=== PATIENT | male | born 1955 | race Caucasian/White ===

== ENCOUNTER → 2024-12-14 08:45 | Outpatient (REF) | payer MEDICARE, SELFPAY | LOC: DHSLP 08:45 | PROVIDERS: ATTENDING PHYSICIAN Internal Medicine; FAMILY PHYSICIAN Student in an Organized Health Care Education/Training Program | DX: G47.33 Obstructive sleep apnea (adult) (pediatric) (principal) | CPT/HCPCS: 95800 ==

== ENCOUNTER 2025-02-12 13:01 | Inpatient (IN) | payer MEDICARE, OTHER, SELFPAY ==
[2025-02-12] VITALS (9 sets, daily range): BP systolic 129–150; BP diastolic 65–85; BMI 28.7; BMI 27.6
[2025-02-12] MEDS: ANCEF 10 IV ×2 (11:25→18:59)
[2025-02-12 11:36] LABS: Hematocrit 34.3 % (39.0-52.0); Hemoglobin 11.0 g/dL (13.0-18.0); Mean Corp Hgb Conc. 32.1 g/dL (33.0-37.0); Mean Corpuscular Volume 92.2 fL (80.0-94.0); Nucleated Red Blood Cells % 0 % (-); Platelet Count 182 10^3/uL (130-400); Red Cell Dist. Width 12.5 % (11.5-14.5)
[2025-02-12 11:56] LABS: ALT (SGPT) 21 U/L (0-50); AST (SGOT) 24 U/L (17-59); Albumin 3.9 g/dl (3.5-5.0); Alkaline Phosphatase 52 U/L (38-126); Blood Urea Nitrogen 30 mg/dl (9-20); Calcium 8.9 mg/dl (8.4-10.2); Carbon Dioxide 26 mmol/L (22-30); Chloride 105 mmol/L (98-107); Estimated Creatinine Clearance 86 ml/min; Glucose 89 mg/dl (70-99); Potassium 4.3 mmol/L (3.5-5.1); Sodium 137 mmol/L (135-145); Total Protein 6.6 g/dl (6.3-8.2); eGFR > 60.00
--- NOTE | 2025-02-12 12:03 | ED.GENMED ---
History of Present Illness
<Jf Schulz PA-C - Last Filed: 02/12/25 14:10>
General
Chief Complaint: Swelling
Time Seen by Provider: 02/12/25 10:26
History of Present Illness
History of Present Illness:
69-year-old male presents to the emergency department for evaluation of right foot redness and swelling extending up to the right leg. Patient notes that several weeks ago he had a callus debridement performed by his medicine tech and was recommended
to wear insoles with his leg braces. He feels as though one of the insoles is not fitting properly. Has history of cardiac amyloidosis and resultant severe edema in both legs, due to polyneuropathy associated with this condition he has required
the use of ankle and leg braces for ambulation.
Past History
<Jf Schulz PA-C - Last Filed: 02/12/25 14:10>
Past History
ED Past Medical History: Other (Peripheral neuropathy of unknown etiology)
Social History
Tobacco: Non-smoker
Personal:
Review of Systems
<Jf Schulz PA-C - Last Filed: 02/12/25 14:10>
Review of Systems
Allergies reviewed?: Yes
All Other Systems: ROS reviewed and negative except as documented in HPI and ROS
Phy Exam
<Jf Schulz PA-C - Last Filed: 02/12/25 14:10>
Physical Exam
Physical Exam:
GEN: Well appearing, NAD, WDWN
HEENT: Oral mucosa moist, no scleral icterus
Cardiac: Regular rate
Lung: No respiratory distress, no tachypnea
MSK: Severe edema bilateral lower extremities increased right erythema extending from the proximal MTP joints extending to the mid calf
Skin: Good color, no pallor or jaundice, no rashes
Neuro: AO x3, moves all extremities freely
Psych: Calm, cooperative
Scores
<Jf Schulz PA-C - Last Filed: 02/12/25 14:10>
Heart Failure Risk
Heart Failure Risk Score: Not Applicable
Course
<Jf Schulz PA-C - Last Filed: 02/12/25 14:10>
Orders/Labs/Results
Orders:
Orders
02/12/25 10:53
CeFAZolin 2 GRAM [Ancef] 2 grams in 10 ml IV NOW
02/12/25 11:16
Complete Blood Count/With Diff Urgent
Comprehensive Metabolic Panel Urgent
Blood Culture Q30M
ULICES Source: Blood/Venous
Specimen Description:
02/12/25 11:22
Blood Culture Q30M
ULICES Source: Blood/Venous
Specimen Description:
02/12/25 12:31
Admit/Transfer Patient As Directed
Co-Sign Provider:
Level of Care: Inpatient admission
Assign to:: Medical/Surgical
Physician / Group: yesenia
Diagnosis: right LE cellulitis
Reason for Hospitalization: right le Cellulitis
Expected length of stay greater than two midnights?: Yes
ELOS- Estimated Length of Stay in days: 3
I certify the patient meets the requirements for IP care: Yes
PRN Pain Medication Management As Directed
May give lesser potent ordered pain med per pt: Yes
preference::
Protocol:: Medication orders for pain may be administered in a
manner that supports deferring to patient preference
when the pt is:
- Requesting an ordered lesser potent pain medication.
Least to most potent pain medications are defined
as: acetaminophen < NSAID < tramadol < opioids
(morphine, oxycodone, hydromorphone).
- Requesting a lesser dose of the same medication IF
ORDERED.
- Requesting a less intrusive route of administration
if both routes are prescribed by the provider (PO <
IV).
02/12/25 12:32
Code Status As Directed
Resuscitation Status: Full Code
Abnormal Lab Results
02/12/25
11:16
RBC 3.72 L 10^6/uL
(4.70-6.10)
Hgb 11.0 L g/dL
(13.0-18.0)
Hct 34.3 L %
(39.0-52.0)
MCHC 32.1 L g/dL
(33.0-37.0)
Absolute Lymphs (auto) 1.0 L 10^3/uL
(1.2-3.4)
Absolute Monos (auto) 0.7 H 10^3/uL
(0.1-0.6)
Lymphocytes % 15.7 L %
(20.5-51.1)
Monocytes % 10.4 H %
(1.7-9.3)
BUN 30 H mg/dl
(9-20)
02/12/25 11:16
02/12/25 11:16
Vital Signs
Initial and Last Documented VS:
Initial Vital Signs
Temp Pulse Resp BP Pulse Ox
97.9 F 59 18 148/79 100
02/12/25 10:20 02/12/25 10:20 02/12/25 10:20 02/12/25 10:20 02/12/25 10:20
Last Documented Vital Signs
Temp Pulse Resp BP Pulse Ox
97.9 F 66 17 133/70 96
02/12/25 10:20 02/12/25 13:00 02/12/25 13:00 02/12/25 13:00 02/12/25 13:00
<Katrin Parkinson MD - Last Filed: 02/12/25 13:52>
Orders/Labs/Results
Orders:
Orders
02/12/25 10:53
CeFAZolin 2 GRAM [Ancef] 2 grams in 10 ml IV NOW
02/12/25 11:16
Complete Blood Count/With Diff Urgent
Comprehensive Metabolic Panel Urgent
Blood Culture Q30M
ULICES Source: Blood/Venous
Specimen Description:
02/12/25 11:22
Blood Culture Q30M
ULICES Source: Blood/Venous
Specimen Description:
02/12/25 12:31
Admit/Transfer Patient As Directed
Co-Sign Provider:
Level of Care: Inpatient admission
Assign to:: Medical/Surgical
Physician / Group: yesenia
Diagnosis: right LE cellulitis
Reason for Hospitalization: right le Cellulitis
Expected length of stay greater than two midnights?: Yes
ELOS- Estimated Length of Stay in days: 3
I certify the patient meets the requirements for IP care: Yes
PRN Pain Medication Management As Directed
May give lesser potent ordered pain med per pt: Yes
preference::
Protocol:: Medication orders for pain may be administered in a
manner that supports deferring to patient preference
when the pt is:
- Requesting an ordered lesser potent pain medication.
Least to most potent pain medications are defined
as: acetaminophen < NSAID < tramadol < opioids
(morphine, oxycodone, hydromorphone).
- Requesting a lesser dose of the same medication IF
ORDERED.
- Requesting a less intrusive route of administration
if both routes are prescribed by the provider (PO <
IV).
02/12/25 12:32
Code Status As Directed
Resuscitation Status: Full Code
Abnormal Lab Results
02/12/25
11:16
RBC 3.72 L 10^6/uL
(4.70-6.10)
Hgb 11.0 L g/dL
(13.0-18.0)
Hct 34.3 L %
(39.0-52.0)
MCHC 32.1 L g/dL
(33.0-37.0)
Absolute Lymphs (auto) 1.0 L 10^3/uL
(1.2-3.4)
Absolute Monos (auto) 0.7 H 10^3/uL
(0.1-0.6)
Lymphocytes % 15.7 L %
(20.5-51.1)
Monocytes % 10.4 H %
(1.7-9.3)
BUN 30 H mg/dl
(9-20)
02/12/25 11:16
02/12/25 11:16
Vital Signs
Initial and Last Documented VS:
Initial Vital Signs
Temp Pulse Resp BP Pulse Ox
97.9 F 59 18 148/79 100
02/12/25 10:20 02/12/25 10:20 02/12/25 10:20 02/12/25 10:20 02/12/25 10:20
Last Documented Vital Signs
Temp Pulse Resp BP Pulse Ox
97.9 F 66 17 133/70 96
02/12/25 10:20 02/12/25 13:00 02/12/25 13:00 02/12/25 13:00 02/12/25 13:00
<Jf Schulz PA-C - Last Filed: 02/12/25 14:10>
MDM/Problems Addressed
MDM/Problems Addressed:
Will start IV antibiotics, given his severe edema and compromised muscular status in the lower extremities his lymphatic drainage is thus compromised and we will admit for IV antibiotics to avoid further complications. He is anticoagulated thus no
need for ultrasound at this time
<Jf Schulz PA-C - Last Filed: 02/12/25 14:10>
*Pulse Oximetry
SaO2: 99
Oxygen Mode of Delivery: Room air
Patient hypoxic: no
*Critical Care Note
Total Time (30-74mins, 75-104mins- exclusive of procedures): Not Applicable
ED Attending Note
<Jf Schulz PA-C - Last Filed: 02/12/25 14:10>
-
Portions of this chart may have been created with voice recognition software.� Occasional wrong word or��sound alike� substitutions may have occurred due to the inherent limitations of voice recognition software.
<Katrin Parkinson MD - Last Filed: 02/12/25 13:52>
ED Attending Note
Patient seen and examined by attending physician: Yes
I performed the substantive portion of visit, reviewed & personally made and approve the management plan that is documented in note by myself or EYAL.: Yes
ED Attending Note:
The patient appears well nontoxic. Lungs are clear. Patient has a circumferentially swollen right foot with erythema tracking up top of foot as well as medial aspect of right lower leg.
Discharge Plan
Departure
Patient Disposition: Admit
Date of Disposition: 02/12/25
Time of Disposition: 12:04
Admit to: Med/Surg
Presentation/result/management discussed w/ accepting MD/DO: Hospitalist
Discharge Problem:
Cellulitis of right lower extremity
Interventions
Interventions:
*Risk Screen - Suicide Last Done: 02/12/25 10:20
*General Assessment Last Done: 02/12/25 10:48
*Neglect/Abuse Screening Last Done: 02/12/25 10:48
ED- Cardiac Assessment Last Done: 02/12/25 10:48
ED- Pulmonary Assessment Last Done: 02/12/25 10:48
ED-Skin Assessment Last Done: 02/12/25 10:48
--- NOTE | 2025-02-12 12:05 | HPS.HSE ---
Addendum entered and electronically signed by Tiara Emerson MD 02/12/25 13:49:
This is an addendum to H&P written by Lolly Martinez on 02/12/2025. �Patient seen and examined independently with GUEST SERVICES ASSISTANT.
69-year-old male past medical history of cardiac amyloidosis, pAfib on Eliquis, chrnotropic incompentence s/p pacemaker, peripheral neuropathy, chronic anemia, osteomyelitis of left heel status post surgery, presenting with infection of right leg.
He underwent exfoliation of legs by podiatry a month ago. �Wearing new inserts that were not sitting right with infection of the callus with subsequent reduction of the foot and leg. �No fevers or chills.
Vital signs unremarkable.� On examination there is callous without any wound. Redness of the foot progressing up the leg.�
Labs show stable anemia.
Patient with cellulitis of right lower extremity. �Blood cultures pending. �Cefazolin.
Original Note:
Family Physician
-
Family Physician: Evelin Garza MD
Chief Complaint
-
right foot swelling and redness
History of Present Illness
69 year old with PMH for cardiomyopathy, amyloidosis , polyneuropathy, HTn, osteomyelitis, polyneuropathy,chronotropic incompetence presented to us with right LE redness and swelling. patient had an exfoliation of his plantar aspect of leg a month
ago. he was asked to wear a insert in his shoes. the insert was not sitting right in his shoes, and he developed the callus on the plantar on his right foot.he wears the shoes with brace all the time due to the polyneuropathy. last night he
noticed redness and swelling on his right LE. today he was not able to reach his PCP so he came to the ER. patient denied fever, chills, chest pain, short of breath. Patient denied headache, dizzy or syncope. Patient denied abdominal pain, nausea,
vomiting or diarrhea. Patient denied dysuria hematuria
patient received IV Ancef in the ER. blood culture sent from ER. admitting for further management.
Medical History
Past Medical History
Past Medical History: Reports Other
Additional Past Medical History:
Amyloidosis, polyneuropathy, seizure, sleep apnea, bradycardia chronotropic incompetence, cardiomyopathy
Past Surgical History: Reports Other
Additional Past Surgical History:
Left knee arthroscopy, pacemaker
Social History
Tobacco: Non-smoker
Alcohol: None
Drug: None
Personal:
Living: With Family
Family History
Family History: Not pertinent
Allergies / Home Medications
Allergies reflects when Allergies were last updated in [facility] [place] - 2.
Home Medications with original date entered in [facility] [place] - 2
Allergy/Medication List:
Allergies
Allergy/AdvReac Type Severity Reaction Status Date / Time
No Known Allergies Allergy Verified 02/12/25 10:20
Home Medications
omega-3 fatty acids-fish oil 360 mg-1,200 mg capsule (Fish Oil) 1 ea PO DAILY Supplement 04/24/17
Amyloidosis Specific Multivit 1 tab PO DAILY Supplement 02/12/25
apixaban 5 mg tablet (Eliquis) 5 mg PO BID Blood Clot Prevention/Tx 02/12/25
valsartan 160 mg tablet 160 mg PO BID Blood Pressure 02/12/25
vutrisiran 25 mg/0.5 mL subcutaneous syringe (Amvuttra) 25 mg SC [id number] amyloidosis 02/12/25
Review of Systems
-
Constitutional: Reports No Symptoms
EENT: Reports No Symptoms
Respiratory: Reports No Symptoms
Cardiac: Reports No Symptoms
Abdomen/GI: Reports No Symptoms
: Reports No Symptoms
Musculoskeletal: Reports No Symptoms
Skin: Reports Other (Right lower extremities redness, swelling, callus noted on the plantar aspect)
Neurological: Reports No Symptoms
Endocrine: Reports No Symptoms
Hematologic/Lymphatic: Reports No Symptoms
Psych: Reports No Symptoms
Physical Exam
Vital Signs
Vital Signs
Temp Pulse Resp BP Pulse Ox
97.9 F 60 16 148/79 99
02/12/25 10:20 02/12/25 10:45 02/12/25 10:45 02/12/25 10:20 02/12/25 12:05
Physical Exam
General: Well Developed, Well Nourished and No Apparent Distress
HEENT: NormoCephalic, Moist mucous membranes and Atraumatic
Respiratory: Clear
Cardiac: S1/S2 and Regular Rhythm; No Murmur or Rub
GI: Soft, Non Tender, Non Distended and Normal Bowel Sounds; No Organomegaly
Rectal: Deferred by Provider
Musculoskeletal: No Clubbing, No Cyanosis and No Edema
Skin: Rash and Other (Right lower extremities redness swelling, callus underneath the right great toe)
Neuro: AO x 3 and Nonfocal/grossly intact
Psych: Calm
Laboratory Results
-
02/12/25 11:16
02/12/25 11:16
Laboratory Results
Total Bilirubin 0.7 mg/dl (0.2-1.3) 02/12/25 11:16
AST 24 U/L (17-59) 02/12/25 11:16
ALT 21 U/L (0-50) 02/12/25 11:16
Alkaline Phosphatase 52 U/L (38-126) 02/12/25 11:16
Data Reviewed
-
Lab Data: Labs Reviewed by me
Impression/Plan
-
# Right lower extremity cellulitis
- IV Ancef
- Blood culture sent from ER
- Wound care consulted
- Tylenol as needed for fever or pain
# Cardiomyopathy
# Paroxysmal A-fib
# Chronotropic incompetence
# Essential hypertension
# Status post pacemaker
- Eliquis continued
- Valsartan continued with hold parameter
# History of amyloidosis
- On vutrisiran every 3 months
# History of polyneuropathy
# History of r left lower extremities
# DVT prophylaxis
- Eliquis
# CODE STATUS
- Full code
--- NOTE | 2025-02-12 12:44 | EDCM ---
CM reviewed chart and met with patient at ED bedside
Lives in a multi-level home with Latricia : [address]
Independent and ambulating without any AD , driving
DME bilateral foot braces
PCP Evelin Garza
RX plan yes
pharmacy : [facility] in [place]
no hx of SNF hx of [facility] 8 years ago
outpatient wound care at 8 years ago
DCP is for him to return home once stable
CM to follow up for dcp needs
[2025-02-12] MEDS: DIOVAN 160 MG PO (20:09)
[2025-02-12] MEDS: ELIQUIS 5 MG PO (20:11)
--- NOTE | 2025-02-12 23:41 | PTCARENOTE ---
received pt from ED at 2130. pt ambulated from stretcher to bed. pt A&O x 3. pt offers no current complaints and appears comfortable in bed. call carvajal within reach. plan of care ongoing.
[2025-02-13] MEDS: ANCEF 10 IV ×3 (02:07→17:00)
--- NOTE | 2025-02-13 07:26 | W.PN.HOSP.TC ---
Addendum entered and electronically signed by Jeffrey Reese MD 02/13/25 15:57:
Seen and examined the patient. Agree with the plan set forth by the resident. See changes in my documentation
69-year-old with right foot swelling and redness
Right foot mildly edematous
Small callus with shallow wound in the plantar aspect
Pulses are readily palpable
Neuropathy changes bilateral lower extremity and upper extremity
Cardiovascular system S1 and S2 appreciated
Chest clear to auscultation
# Right lower extremity cellulitis
Started on IV Ancef-continue
Blood culture sent by the ER-follow
Wound care consulted
Patient follows up with podiatry as outpatient
Would do Saul bandages for the foot
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 Continue Specific vitamins (pt to supply)
# Paroxysmal atrial fibrillation-on Eliquis
# Hypertension-on valsartan
# S/p pacemaker placement
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
# History of seizures-not on medicines
# BMI of 27
# DVT prophylaxis-Eliquis
# Full code
Part of this note was created using voice recognition system. Occasional wrong word or��sound alike� substitutions may have inadvertently occurred due to the inherent limitations of voice recognition software. If noted kindly bring it to my
attention for correction.
Original Note:
Today's Communication/Plan
-
Continue IV antibiotics
Compression therapy
X-ray
Assessment / Plan
Assessment / Plan
69 year old with PMH for cardiomyopathy, paroxysmal A-fib on Eliquis, amyloidosis , polyneuropathy, HTN, osteomyelitis, polyneuropathy, chronotropic incompetence presented to us with right LE redness and swelling. patient had an exfoliation of his
plantar aspect of leg a month ago. On evening of 02/11 noticed redness and swelling on his right LE. Due to impaired lympahtic drainage in the setting of amyloidosis, he was admitted for IV antibiotics for RLE cellulitis.
# Right lower extremity cellulitis
#right lower extremity wound
- IV Ancef
- followup Blood cultures
- Wound care following
- Compression therapy, knee-high
- X-ray, rule out osteomyelitis
- Tylenol as needed for fever or pain
# Paroxysmal A-fib
-eliquis
# Essential hypertension
- Valsartan continued with hold parameter
# Chronotropic incompetence
# Cardiomyopathy, amyloidosis
Status post pacemaker
# History of amyloidosis
- On vutrisiran every 3 months
# History of polyneuropathy
Due to amyloidosis
DVT prophylaxis
- Eliquis
CODE STATUS
- Full code
Anticipated Discharge: Within 24 hours
Subjective/Interval History
-
Patient was seen at bedside, reports feeling well today. He reports no nausea fevers chills shortness of breath or pain. At baseline he cannot feel feet well due to amyloidosis. Reports that redness around the feet has improved. Reports travel
between here [facility] in the past couple weeks but has not felt any pain or swelling in his calf area. Date of Service: February 13, 2025
Objective Data
-
Labs:
Laboratory Results
02/13/25
06:00
WBC Pending
Hgb Pending
Hct Pending
Plt Count Pending
Sodium Pending
Potassium Pending
Chloride Pending
Carbon Dioxide Pending
BUN Pending
Creatinine Pending
Glucose Pending
Calcium Pending
Vital Signs:
Vital Signs
Temp Pulse Resp BP Pulse Ox
98.5 F 61 19 129/65 98
02/12/25 23:14 02/12/25 23:14 02/12/25 23:14 02/12/25 23:14 02/12/25 23:14
I&O
02/12/25 02/13/25 02/14/25
06:59 06:59 06:59
Intake Total 480 / 480
Balance 480 / 480
Review of Systems
-
History Source: Patient
Constitutional: Reports No Symptoms; Denies Fever or Fatigue
EENT: Reports No Symptoms Reported; Denies Sore Throat or Runny Nose
Respiratory: Reports No Symptoms; Denies Cough, Trouble Breathing or Wheezing
Cardiac: Reports No Symptoms; Denies Chest Pain or Palpitations
Abdomen/GI: Reports No Symptoms; Denies Abdominal Pain, Nausea, Vomiting, Diarrhea or Constipated
Genitourinary: Reports No Symptoms; Denies Dysuria
Musculoskeletal: Reports No Symptoms
Skin: Reports No Symptoms
Neuro: Reports No Symptoms; Denies Dizzy or Headache
Physical Exam
-
General: Well Developed, Well Nourished, No Apparent Distress and Comfortable
HEENT: Normocephalic and Atraumatic
Respiratory: Clear to Auscultation and Non Labored Respirations; Negative Wheezes or Crackles
Cardiac: Regular Rhythm and S1/S2; Negative Murmur
GI: Soft, Nontender, Nondistended and Normal Bowel Sounds
Musculoskeletal: Edema, Right Lower Extrem (3+, right leg greater than left in size) and Edema, Left Lower Extrem (1+)
Skin: Lesions (Callus right erythematous lesion plantar aspect of right foot) and Other (Nonblanchable erythema across right metatarsal progressing to ankle)
Neuro: Awake and Alert
[2025-02-13 07:40] VITALS: BP 150/79
[2025-02-13 07:54] LABS: Hematocrit 33.4 % (39.0-52.0); Hemoglobin 11.5 g/dL (13.0-18.0); Mean Corp Hgb Conc. 34.4 g/dL (33.0-37.0); Mean Corpuscular Volume 88.6 fL (80.0-94.0); Platelet Count 186 10^3/uL (130-400); Red Cell Dist. Width 12.2 % (11.5-14.5)
[2025-02-13 08:22] LABS: Blood Urea Nitrogen 20 mg/dl (9-20); Calcium 8.7 mg/dl (8.4-10.2); Carbon Dioxide 25 mmol/L (22-30); Chloride 107 mmol/L (98-107); Estimated Creatinine Clearance 97 ml/min; Glucose 95 mg/dl (70-99); Potassium 4.2 mmol/L (3.5-5.1); Sodium 136 mmol/L (135-145); eGFR > 60.00
[2025-02-13] MEDS: DIOVAN 160 MG PO ×2 (08:39→20:48)
[2025-02-13] MEDS: ELIQUIS 5 MG PO ×2 (08:40→20:47)
--- NOTE | 2025-02-13 12:39 | CM ---
Reviewed chart and met with pt bedside. IMM given and placed on the chart. Pt states he DOES NOT have any wounds. BC are pending.
Plan: Home no need
[2025-02-13 15:40] VITALS: BP 134/73
[2025-02-13 23:16] VITALS: BP 105/53
[2025-02-14] MEDS: ANCEF 10 IV ×2 (01:55→09:55)
--- NOTE | 2025-02-14 02:24 | DOWNTIME ---
There was a [employer] Client R[employer] Access Downtime on 02/14/2025 from 0100 to 02/14/2025 at 0215. Downtime documentation of patient's care, including medication administrations, has been reconciled in the electronic record per guidelines. Refer to the
patient's paper chart under the miscellaneous tab to see printed paper medication records and downtime forms.
[2025-02-14 07:40] VITALS: BP 147/81
[2025-02-14] MEDS: DIOVAN 160 MG PO (08:09)
[2025-02-14] MEDS: ELIQUIS 5 MG PO (08:09)
[2025-02-14 08:13] LABS: Hematocrit 35.9 % (39.0-52.0); Hemoglobin 11.7 g/dL (13.0-18.0); Mean Corp Hgb Conc. 32.6 g/dL (33.0-37.0); Mean Corpuscular Volume 92.3 fL (80.0-94.0); Platelet Count 210 10^3/uL (130-400); Red Cell Dist. Width 12.4 % (11.5-14.5)
--- NOTE | 2025-02-14 09:31 | W.PN.HOSP.TC ---
Addendum entered and electronically signed by Jeffrey Reese MD 02/14/25 15:41:
Seen and examined the patient. Agree with the plan set forth by the resident. See changes in my documentation
69-year-old with right foot swelling and redness
X-ray of the foot-moderate diffuse soft tissue swelling with subcutaneous edema. No osteomyelitis. Moderate hallux valgus deformity. 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 Small plantar calcaneal enthesophyte
Right foot mildly edematous-better today
Small callus with shallow wound in the plantar aspect
Pulses are readily palpable
Neuropathy changes bilateral lower extremity and upper extremity
Cardiovascular system S1 and S2 appreciated
Chest clear to auscultation
Bilateral foot drop
# Right lower extremity cellulitis
Started on IV Ancef-change to PO for Discharge
Blood culture neg
Patient follows up with podiatry as outpatient, advised to follow up
Would do Saul bandages for the foot, pt aware
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 Continue Specific vitamins (pt to supply)
# Paroxysmal atrial fibrillation-on Eliquis
# Hypertension-on valsartan
# S/p pacemaker placement
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
# History of seizures-not on medicines
# BMI of 27
# DVT prophylaxis-Eliquis
# Full code
OK for Discharge on PO AB
He is aware to follow-up with director workforce management to get a better shoes and also proper shoe inserts. Patient uses splints for his foot drop.
Part of this note was created using voice recognition system. Occasional wrong word or��sound alike� substitutions may have inadvertently occurred due to the inherent limitations of voice recognition software. If noted kindly bring it to my
attention for correction.
Original Note:
Today's Communication/Plan
-
Transition IV antibiotics to p.o.
Patient medically stable for discharge
Assessment / Plan
Assessment / Plan
69 year old with PMH for cardiomyopathy, paroxysmal A-fib on Eliquis, amyloidosis , polyneuropathy, HTN, osteomyelitis, polyneuropathy, chronotropic incompetence presented to us with right LE redness and swelling. patient had an exfoliation of his
plantar aspect of leg a month ago. On evening of 02/11 noticed redness and swelling on his right LE. Due to impaired lymphatic drainage in the setting of amyloidosis, he was admitted for IV antibiotics for RLE cellulitis. Foot x-ray ruled out
acute osteomyelitis. Patient continued to receive IV antibiotics compression therapy and wound care resulting in reduced erythema and swelling of the right lower extremity. Patient medically stable for discharge.
# Right lower extremity cellulitis
#right lower extremity wound
- IV Ancef transition to Keflex for 5 more days
- Blood cultures no growth to date
- Wound care following
- Compression therapy, knee-high
- Foot x-ray negative for osteomyelitis
- Tylenol as needed for fever or pain
# Paroxysmal A-fib
-eliquis
# Essential hypertension
- Valsartan continued with hold parameter
# History of amyloidosis
# Chronotropic incompetence
# Cardiomyopathy, amyloidosis
Status post pacemaker
- On vutrisiran every 3 months
# History of polyneuropathy
Due to amyloidosis
DVT prophylaxis
- Eliquis
CODE STATUS
- Full code
Anticipated Discharge: Today
Subjective/Interval History
-
Patient was seen at bedside. He reports doing well no fevers chills shortness of breath chest pain. He reports that the swelling has decreased significantly and redness has improved. No other complaints. Date of Service: February 14, 2025
Objective Data
-
Labs:
Laboratory Results
02/14/25
07:21
WBC 5.3
Hgb 11.7 L
Hct 35.9 L
Plt Count 210
Sodium Pending
Potassium Pending
Chloride Pending
Carbon Dioxide Pending
BUN Pending
Creatinine Pending
Glucose Pending
Calcium Pending
Vital Signs:
Vital Signs
Temp Pulse Resp BP Pulse Ox
97.6 F 61 16 147/81 98
02/14/25 07:40 02/14/25 07:40 02/14/25 07:40 02/14/25 07:40 02/14/25 07:40
I&O
02/13/25 02/14/25 02/15/25
06:59 06:59 06:59
Intake Total 480 / 480 480 / 480
Balance 480 / 480 480 / 480
Review of Systems
-
History Source: Patient
Constitutional: Reports No Symptoms; Denies Fever, Fatigue or Chills
EENT: Reports No Symptoms Reported; Denies Sore Throat or Runny Nose
Respiratory: Reports No Symptoms; Denies Cough, Trouble Breathing or Wheezing
Cardiac: Reports No Symptoms; Denies Chest Pain or Palpitations
Abdomen/GI: Reports No Symptoms; Denies Abdominal Pain, Nausea, Vomiting, Diarrhea or Constipated
Genitourinary: Reports No Symptoms; Denies Dysuria
Skin: Reports Rash (Right foot erythema)
Neuro: Denies Headache
Physical Exam
-
General: Well Developed, Well Nourished, No Apparent Distress and Comfortable; Negative Fever
HEENT: Normocephalic and Atraumatic
Respiratory: Clear to Auscultation; Negative Wheezes, Rhonchi or Crackles
Cardiac: Regular Rhythm and S1/S2; Negative Murmur
GI: Soft, Nontender, Nondistended and Normal Bowel Sounds
Musculoskeletal: No Clubbing, Edema, Right Lower Extrem (1+) and Edema, Left Lower Extrem (1+)
Skin: Warm, Dry and Rash (Nonblanchable erythema right foot along metatarsals, erythema greatly reduced)
Neuro: Awake, Alert and Oriented
--- NOTE | 2025-02-14 10:49 | WOUNDNOTE ---
LEFT PLANTAR 1ST MTH
--- NOTE | 2025-02-14 10:50 | WOUNDNOTE ---
LEFT DORSAL FOOT
--- NOTE | 2025-02-14 10:50 | WOUNDNOTE ---
BILATERAL LOWER EXTREMITIES
--- NOTE | 2025-02-14 10:51 | WOUNDNOTE ---
RIGHT PLANTAR 1ST MTH
--- NOTE | 2025-02-14 10:52 | WOUNDNOTE ---
RIGHT DORSAL FOOT
--- NOTE | 2025-02-14 10:52 | WOUNDNOTE ---
LEFT LATERAL HEEL
--- NOTE | 2025-02-14 10:53 | WOUNDNOTE ---
PREMA RN NOTE: Patient admitted with R foot and leg cellulitis, history of neuropathy, A fib and L heel surgery for osteomyelitis. Patient states he goes to a [facility] [employer] [facility] and was using a brace in his shoe that was causing a callus on R plantar 1st MH.
Patient [employer] Services Specialist recommended an insert instead of the brace and patient reports it scrunched up at top of shoe. Patient has neuropathy and didn't feel it for a long time. Has erythema and swelling of R foot, + palpable pedal pulses. Foot x ray negative
for osteo, acute cellulitis. No open wounds on dorsal foot or btw toes. L heel with scar, foot intact. R heel is intact and patient able to ambulate without difficulty. R leg elevated on several pillows. Saul wrap already on order, applied ABD over
red area on dorsal foot and then saul wrap from forefoot to below knee. Encouraged leg elevation and to follow up with [facility] [employer] Services [employer]ist upon discharge. Teaching done regarding foot care and importance of moisturizing but avoiding btw toes. Will order
mineral oil to start tomorrow. Will update care plan and sign off.
--- NOTE | 2025-02-14 10:53 | WOUNDNOTE ---
LEFT GREAT TOE
[2025-02-14 11:10] LABS: Blood Urea Nitrogen 17 mg/dl (9-20); Calcium 8.7 mg/dl (8.4-10.2); Carbon Dioxide 26 mmol/L (22-30); Chloride 104 mmol/L (98-107); Estimated Creatinine Clearance 97 ml/min; Glucose 102 mg/dl (70-99); Potassium 4.3 mmol/L (3.5-5.1); Sodium 132 mmol/L (135-145); eGFR > 60.00
[2025-02-14 15:05] VITALS: BP 146/64
--- NOTE | 2025-02-14 15:57 | W.DCSUMMARY ---
Discharge Summary
Discharge Data
Date of Admission: 02/12/25
Date of Discharge: 02/14/25
-
Pending Results: No
Hospital Course
Discharging Physician :
Dr. Reese
Dr. Mcfarlane
Disposition : Home
Primary care physician : Evelin Garza MD
Principal Discharge diagnosis : Right lower extremity cellulitis
Chronic Discharge diagnosis :
Right lower extremity cellulitis
Cardiomyopathy, amyloidosis
Paroxysmal A-fib
Chronotropic incompetence status post pacemaker
Essential hypertension
Polyneuropathy secondary to amyloidosis
Hospital Course :
Mr. King is a 69 year old with PMH for cardiomyopathy secondary to amyloidosis, paroxysmal A-fib on Eliquis, amyloidosis , polyneuropathy, HTN, Hx of osteomyelitis, polyneuropathy secondary to amyloidosis, chronotropic incompetence status post
pacemaker presented to us with right LE redness and swelling. Patient had an exfoliation of his plantar aspect of leg a month ago and reports jamming his foot into his shoes with new inserts where he possibly injured himself. On evening of 02/11
noticed redness and swelling on his right LE. In the ED patient was AFVSS, due to impaired lymphatic drainage in the setting of amyloidosis, he was admitted for IV antibiotics for RLE cellulitis. Blood cultures from the ER showed no growth at
48 hours, foot x-ray in the hospital ruled out acute osteomyelitis. Patient continued to receive IV antibiotics, compression therapy and wound care resulting in reduced erythema and swelling of the right lower extremity. Patient was transition to
p.o. antibiotics to complete 7-day course and patient was AFVSS and medically stable for discharge.
Important imaging findings :
02/13/2025 foot x-ray right:
IMPRESSION:
1. Moderate diffuse soft tissue swelling and subcutaneous edema throughout the right foot and ankle consistent with ACUTE CELLULITIS.
2. No radiographic evidence for acute osteomyelitis.
3. Moderate hallux valgus deformity.
4. Mild osteoarthritis of the 1st MTP and tibiotalar joints.
5. Small plantar calcaneal enthesophyte.
02/12/2025 EKG:
Atrial-paced rhythm with prolonged AV conduction
RIGHT BUNDLE BRANCH BLOCK
SEPTAL INFARCT (CITED ON OR BEFORE 22-Aug-2013)
ABNORMAL ECG
WHEN COMPARED WITH ECG OF 22-Aug-2013 16:24,
Procedure findings :
Discharge Plan
-
Patient Disposition: Home (Routine Discharge)
Discharge Diagnosis/Procedures: Right lower extremity cellulitis
Cardiomyopathy, amyloidosis
Paroxysmal A-fib
Chronotropic incompetence status post pacemaker
Essential hypertension
Polyneuropathy secondary to amyloidosis
Condition: Good
Diet: 2 Gram Sodium
Activity: As tolerated
Driving Restrictions: As prior to admission
Bathing Restrictions: None
Activity Restrictions/Additional Instructions:
Wound Care Instructions
R foot: wash with soap and water, moisturize with mineral oil then apply ABD over red area on dorsal foot under danae wrap knee high.
R leg elevation when sitting
moisturize both legs daily after bathing.
Follow up with Vice President [employer].
Referrals:
Evelin Garza MD [Family Provider, Internal Medicine] - in less than 1 week
Additional Discharge Medication Instructions: Please send copy to PCP
Prescriptions:
New
cephalexin 500 mg capsule
500 mg PO QID Qty: 20 0RF
Continued
omega-3 fatty acids-fish oil [Fish Oil] 1 EACH capsule
1 ea PO DAILY
valsartan 160 mg Tablet
160 mg PO BID
Eliquis 5 mg Tablet
5 mg PO BID
Amvuttra 25 mg/0.5 mL Syringe
25 mg SC [id number]
Amyloidosis Specific Multivit
1 tab PO DAILY
Discharge Orders:
Discharge Patient (As Directed); Ordered 02/14/25
Ordered By: Esdras Mcfarlane
Discharge Date and Time
Print Language: JORDANIAN
--- NOTE | 2025-02-14 16:00 | CM ---
Pt is discharged. Driving himself home. Home with no needs
== END 2025-02-14 16:22 | disposition home or self-care (01) | DRG 603 ==
LOC: 4 EAST ACU 13:01
PROVIDERS: Physician Assistant; Registered Nurse; Student in an Organized Health Care Education/Training Program; ADMITTING PHYSICIAN Hospitalist; ATTENDING PHYSICIAN Hospitalist; EMERGENCY PHYSICIAN Emergency Medicine; FAMILY PHYSICIAN Student in an Organized Health Care Education/Training Program
DX: L03.115 Cellulitis of right lower limb (principal); E85.4 Organ-limited amyloidosis; I43 Cardiomyopathy in diseases classified elsewhere; I48.0 Paroxysmal atrial fibrillation; G62.9 Polyneuropathy, unspecified; I10 Essential (primary) hypertension; D64.9 Anemia, unspecified; Z68.27 Body mass index [BMI] 27.0-27.9, adult; Z79.01 Long term (current) use of anticoagulants; Z95.0 Presence of cardiac pacemaker
CPT/HCPCS: 73620; 80048; 80053; 85025; 85027; 87040; 93005; 94660; 96374; 99285

== ENCOUNTER → 2025-04-12 09:58 | Outpatient (REF) | payer MEDICARE, OTHER, SELFPAY | LOC: RAD 09:58 | PROVIDERS: ATTENDING PHYSICIAN Student in an Organized Health Care Education/Training Program | DX: L03.115 Cellulitis of right lower limb (principal) | CPT/HCPCS: 73630 ==

== ENCOUNTER → 2025-04-13 10:44 | Outpatient (REF) | payer MEDICARE, OTHER, SELFPAY | LOC: DHVS 10:44 | PROVIDERS: ATTENDING PHYSICIAN Student in an Organized Health Care Education/Training Program | DX: M79.89 Other specified soft tissue disorders (principal); R60.0 Localized edema | CPT/HCPCS: 93971 ==